=== PATIENT | female | born 2000 | race Caucasian/White ===

== ENCOUNTER 2021-11-15 20:37 | Emergency (ER) | payer OTHER ==
[~2021-11-15] VITALS: Ht 154.9 cm; Wt 57.2 kg
[2021-11-15 20:40] VITALS: BP 123/76
--- NOTE | 2021-11-15 20:40 | NUR ---
TO BED AMBULATORY
--- NOTE | 2021-11-15 21:09 | NUR ---
Dr. Wolf examining patient.
[2021-11-15] MEDS ORDERED: KETOROLAC 30 MG/ML VIAL IM ONE (21:15)
--- NOTE | 2021-11-15 21:18 | NUR ---
Ultrasound at bedside.
--- NOTE | 2021-11-15 21:32 | NUR ---
ULTRASOUND AT BEDSIDE
[2021-11-15 21:34] LABS: BASOPHILS % (AUTO) 0.4 % (0.0-2.0); EOSINOPHILS # (AUTO) 0.1 K/uL (0-0.4); EOSINOPHILS % (AUTO) 1.1 % (0.0-4.0); HEMATOCRIT 41.8 % (36-48); HEMOGLOBIN 14.3 g/dL (12.0-16.0); LYMPHOCYTES # (AUTO) 2.1 K/uL (2.5-16.5); LYMPHOCYTES % (AUTO) 24.1 % (20.5-51.1); MEAN CORPUSCULAR HEMOGLOBIN 32 pg (27-31); MEAN CORPUSCULAR HGB CONC 34 g/dL (33-37); MEAN CORPUSCULAR VOLUME 92.4 fL (80-94); MONOCYTES # (AUTO) 0.7 K/uL (0.8-1.0); MONOCYTES % (AUTO) 8.4 % (1.7-9.3); NEUTROPHILS # (AUTO) 5.8 K/uL (1.8-7.7); PLATELET COUNT (AUTO) 202 K/uL (140-450); RED BLOOD CELL COUNT(AUTO) 4.52 MIL/uL (4.20-5.40); RED CELL DISTRIBUTION WIDTH 13.5 % (11.6-13.7); WHITE BLOOD COUNT (AUTO) 8.8 K/uL (4.5-11.0)
--- NOTE | 2021-11-15 21:49 | NUR ---
PT TAKEN TO CT
[2021-11-15 21:55] LABS: ALBUMIN 4.1 g/dL (3.4-5.0); ANION GAP 13.2 (8-16); CARBON DIOXIDE 27.5 mmol/L (21-32); CREATININE 0.9 mg/dL (0.6-1.3); POTASSIUM 3.7 mmol/L (3.5-5.1); TOTAL BILIRUBIN 0.2 mg/dL (0.0-1.0)
--- NOTE | 2021-11-15 21:57 | NUR ---
PT RETURN FROM CT
[2021-11-15] MEDS ORDERED: IBUP-2213 PO (22:51)
[2021-11-15 23:04] VITALS: BP 100/58
== END 2021-11-15 23:05 | disposition home or self-care (01) ==
LOC: MED 20:37
DX: N20.0 Calculus of kidney (principal); R10.31 Right lower quadrant pain
CPT/HCPCS: 36415; 74176; 76856; 80053; 81002; 81025; 85025; 93976; 96372; 99284; J1885; Q0092